=== PATIENT | female | born 1985 | race African-American/Black ===

== ENCOUNTER 2024-11-04 08:02 | Emergency (ER) | payer OTHER ==
[~2024-11-04] VITALS: Ht 165.1 cm; Wt 72.6 kg
[2024-11-04 08:16] VITALS: TEMP 98.4
[2024-11-04 09:16] LABS: BASOPHILS % 0.5 % (0.0-1.0); EOSINOPHILS # (AUTO) 0.1 (0.0-0.4); EOSINOPHILS % 0.9 % (0.0-6.0); HEMATOCRIT 39.1 % (34.2-44.1); LYMPHOCYTES # (AUTO) 1.7 (1.0-3.2); LYMPHOCYTES % 26.5 % (18.0-39.1); MEAN CORPUSCULAR HEMOGLOBIN 29.6 pg (28-32); MEAN CORPUSCULAR HGB CONC 33.2 g/dL (31-35); MEAN CORPUSCULAR VOLUME 89.1 fL (81-99); MONOCYTES # (AUTO) 0.4 (0.2-0.8); NEUTROPHILS # (AUTO) 4.2 (2.1-6.9); NEUTROPHILS % 65.8 % (38.7-80.0); PLATELET COUNT 196 x10e3/uL (140-360); RED BLOOD COUNT 4.39 x10e6/uL (3.6-5.1); RED CELL DISTRIBUTION WIDTH 13.5 % (11.7-14.4); WHITE BLOOD COUNT 6.33 x10e3/uL (4.8-10.8)
[2024-11-04 09:28] LABS: BILIRUBIN,URINE NEGATIVE (NEGATIVE); CLARITY,URINE CLOUDY (CLEAR); COLOR,URINE YELLOW (YELLOW); GLUCOSE, URINE NEGATIVE (NEGATIVE); KETONES,URINE NEGATIVE (NEGATIVE); LEUKOCYTE ESTERASE ,URINE NEGATIVE (NEGATIVE); NITRITE,URINE NEGATIVE (NEGATIVE); PH,URINE 6 (5 - 7); PROTEIN,URINE DIPSTICK TRACE (NEGATIVE); URINE UROBILINOGEN 1 mg/dL (0.2 - 1)
[2024-11-04 09:32] LABS: BACTERIA,URINE FEW /HPF; EPITHELIAL CELLS,URINE FEW /LPF; MUCUS,URINE MODERATE; RBC,URINE 0-5 /HPF (0-5)
[2024-11-04 09:48] LABS: ALANINE AMINOTRANSFERASE 16 IU/L (0-55); ALBUMIN 4.1 g/dL (3.5-5.0); ALBUMIN/GLOBULIN RATIO 1.3 (0.8-2.0); ALKALINE PHOSPHATASE 43 IU/L (40-150); ANION GAP 15.6 mmol/L (8-16); BILIRUBIN,TOTAL 0.5 mg/dL (0.2-1.2); BLOOD UREA NITROGEN 8 mg/dL (7-26); BUN/CREATININE RATIO 10 (6-25); CALCIUM 9.1 mg/dL (8.4-10.2); CARBON DIOXIDE 22 mmol/L (22-29); CHLORIDE 103 mmol/L (98-107); CREATININE, SERUM 0.78 mg/dL (0.57-1.11); EST GLOMERULAR FILTRATION RATE 98 ML/MIN (>=60); GLUCOSE 90 mg/dL (74-118); POTASSIUM 3.6 mmol/L (3.5-5.1); SODIUM 137 mmol/L (136-145); TOTAL PROTEIN 7.2 g/dL (6.5-8.1)
[2024-11-04 09:53] LABS: TROPONIN I 0.005 ng/mL (0-0.300)
[2024-11-04] MEDS: KETOROLAC TROMETHAMINE 30 MG/ML VIAL IV STA (10:22)
[2024-11-04] MEDS ORDERED: KETOROLAC TROME10 MG PO (10:49)
[2024-11-04] MEDS ORDERED: MEDROL4 M2 PO (10:49)
[2024-11-04 10:57] VITALS: PULSE 72; RESP 16; O2SAT 100
== END 2024-11-04 10:57 | disposition home or self-care (01) ==
LOC: ER 08:49
DX: M79.605 Pain in left leg (principal); M79.604 Pain in right leg; M25.462 Effusion, left knee; M25.461 Effusion, right knee; M70.88 Other soft tissue disorders related to use, overuse and pressure other site; I10 Essential (primary) hypertension; E11.9 Type 2 diabetes mellitus without complications
CPT/HCPCS: 36415; 71045; 73562; 80053; 81001; 83880; 84484; 84702; 85025; 99284; J1885